=== PATIENT | male | born 2000 | race Caucasian/White ===

== ENCOUNTER 2021-01-08 01:51 | Emergency (ER) | payer OTHER ==
[2021-01-08] MEDS ORDERED: Lidocaine 1% w/Epinephrine 1:100K 20 ML VIAL ONE (02:28)
[2021-01-08] MEDS ORDERED: Bacitracin 1 PK ONE (02:54)
== END 2021-01-08 07:00 | disposition home or self-care (01) ==
LOC: CSHERS 01:51
DX: S81.011A Laceration without foreign body, right knee, initial encounter (principal); V09.9XXA Pedestrian injured in unspecified transport accident, initial encounter; Y93.51 Activity, roller skating (inline) and skateboarding
CPT/HCPCS: 12001